=== PATIENT | female | born 1990 | race Asian ===

== ENCOUNTER 2018-12-06 21:46 | Emergency (ER) | payer SELFPAY ==
[~2018-12-06] VITALS: Ht 162.6 cm; Wt 59.1 kg
[~2018-12-06 21:46] MED LIST: CEPH-443 PO
[2018-12-06 21:50] VITALS: BP 127/80; PULSE 94; RESP 16; Ht 162.6 cm; Wt 59.1 kg
[2018-12-07] MEDS ORDERED: CEPHALEXIN 500 MG CAP PO ONE (00:15)
== END 2018-12-07 00:32 | disposition home or self-care (01) ==
LOC: FTE 21:46
DX: O26.891 Other specified pregnancy related conditions, first trimester (principal); R10.30 Lower abdominal pain, unspecified; R10.2 Pelvic and perineal pain; Z3A.01 Less than 8 weeks gestation of pregnancy
CPT/HCPCS: 36415; 76801; 80053; 81001; 81025; 84702; 85025; 86900; 86901